=== PATIENT | female | born 1975 | race Two or more races ===

== ENCOUNTER 2016-04-24 06:47 | Emergency (ER) | payer MEDICAID ==
[~2016-04-24] VITALS: Ht 165.1 cm; Wt 79.4 kg
[2016-04-24 07:29] LABS: Basophils # (auto) 0 uL; Basophils % (auto) 0.6 % (0.0-2.0); DEFINITIVE VIEW TRANSMISSION; Eosinophils # (auto) 0.1 uL; Eosinophils % (auto) 2.2 % (0.0-7.0); Hemoglobin 12.9 g/dL (12.2-16.2); Lymphocytes # (auto) 1.2 uL; Lymphocytes % (auto) 26.3 % (10.0-50.0); Mean Corpuscular Hemoglobin 28.9 pg (28.0-32.0); Mean Corpuscular Hgb Conc. 33.1 g/dL (32.0-36.0); Mean Corpuscular Volume 87.2 fL (80.0-100.0); Mean Platelet Volume 9.2 fL (7.4-10.4); Monocytes # (auto) 0.4 uL; Monocytes % (auto) 7.4 % (0.0-12.0); Neutrophils % (auto) 63.5 % (37.0-80.0); Platelet Count (auto) 272 10^3/uL (140-450); White Blood Cell 4.7 10^3/uL (4.4-10.8)
[2016-04-24 07:30] LABS: Red Cell Distribution Width 20.8 % (11.6-16.0)
[2016-04-24 08:08] LABS: Anisocytosis Slight; Platelet Estimate Adequate
[2016-04-24 08:12] LABS: Albumin 4.1 g/dL (3.4-5.0); BUN/Creatinine Ratio 19.5; Calcium 8.4 mg/dL (8.5-10.1); Potassium 3.8 mmol/L (3.5-5.1)
[2016-04-24 08:19] LABS: Bilirubin, Total 0.2 mg/dL (0.2-1.0); Total Protein 8.1 g/dL (6.4-8.2)
[2016-04-24 08:50] VITALS: BP 110/78
== END 2016-04-24 09:29 | disposition home or self-care (01) ==
LOC: ER 06:49
DX: I10 Essential (primary) hypertension (principal)
CPT/HCPCS: 36415; 80053; 85025; 93005

== ENCOUNTER 2017-03-04 09:37 | Emergency (ER) | payer MEDICAID ==
[~2017-03-04] VITALS: Ht 165.1 cm; Wt 80.7 kg
[2017-03-04 09:43] VITALS: BP 114/93
== END 2017-03-04 11:24 | disposition home or self-care (01) ==
LOC: ER 09:37
DX: S30.0XXA Contusion of lower back and pelvis, initial encounter (principal); I10 Essential (primary) hypertension; W19.XXXA Unspecified fall, initial encounter; Y93.21 Activity, ice skating; Y92.89 Other specified places as the place of occurrence of the external cause; Y99.8 Other external cause status
CPT/HCPCS: 72220

== ENCOUNTER 2017-07-09 11:47 | Observation (INO) | payer BC, MEDICAID ==
[~2017-07-09] VITALS: Ht 165.1 cm; Wt 81.6 kg
[2017-07-09] MEDS ORDERED: SODIUM CHLORIDE 0.9% 1,000 ML IVB ONE (12:18)
[2017-07-09] MEDS ORDERED: ONDANSETRON HCL 4 MG/2 ML VIAL IV ONE (12:30)
[2017-07-09 12:37] LABS: Basophils # (auto) 0 uL; Basophils % (auto) 0.7 % (0.0-2.0); Eosinophils # (auto) 0.1 uL; Eosinophils % (auto) 2.6 % (0.0-7.0); Hemoglobin 14.1 g/dL (12.2-16.2); Lymphocytes % (auto) 20.1 % (10.0-50.0); Mean Corpuscular Hemoglobin 31.3 pg (28.0-32.0); Mean Corpuscular Hgb Conc. 32.8 g/dL (32.0-36.0); Mean Corpuscular Volume 95.3 fL (80.0-100.0); Monocytes # (auto) 0.3 uL; Monocytes % (auto) 6.2 % (0.0-12.0); Neutrophils # (auto) 3.5 uL; Neutrophils % (auto) 70.4 % (37.0-80.0); Nucleated Red Blood Cells % 0.1 %; Platelet Count (auto) 235 10^3/uL (140-450); Red Blood Cells 4.51 10^6/uL (4.0-5.20); Red Cell Distribution Width 13.7 % (11.8-14.3); White Blood Cell 4.9 10^3/uL (4.4-10.8)
[2017-07-09 12:51] LABS: Magnesium 2.3 mg/dL (1.6-2.6)
[2017-07-09 13:06] LABS: BUN/Creatinine Ratio 22.9; Bilirubin, Total 0.4 mg/dL (0.2-1.0); Calcium 9.1 mg/dL (8.5-10.1); Potassium 3.9 mmol/L (3.5-5.1); Total Protein 8.2 g/dL (6.4-8.2)
[2017-07-09] MEDS ORDERED: MORPHINE SULFATE 4 MG/ML SYR/VIAL IV ONE (13:30)
[2017-07-09] MEDS ORDERED: diphenhdrAMINE HCL 50 MG/1 ML VL ONE (13:51)
[2017-07-09 13:55] LABS: Urine Bacteria NONE SEEN /hpf (None Seen); Urine Blood Negative /uL (Negative); Urine Specific Gravity 1.016 (1.001-1.035); Urine WBC 7 /hpf (0 - 5)
[2017-07-09] MEDS ORDERED: diphenhdrAMINE HCL 50 MG/1 ML VL IV ONE (14:00)
[2017-07-09] MEDS ORDERED: cefTRIAXone 1GM/10ml IVPUSH 10 ML IV ONE (15:30)
[2017-07-09 17:02] VITALS: BP 101/73
== END 2017-07-09 18:13 | disposition home or self-care (01) | DRG 690 ==
LOC: ER 11:51 → OVERFLOW 18:13 → ER 18:13
PROVIDERS: ADMIT Family Medicine; ATTEND Family Medicine
DX: N39.0 Urinary tract infection, site not specified (principal); I10 Essential (primary) hypertension; Z90.49 Acquired absence of other specified parts of digestive tract; Z90.710 Acquired absence of both cervix and uterus; Z82.49 Family history of ischemic heart disease and other diseases of the circulatory system; Z88.5 Allergy status to narcotic agent
CPT/HCPCS: 36415; 71045; 74176; 80053; 80320; 81001; 82150; 83690; 83735; 85025; 96361; 96374; 96375; 99285; G0378; J1200; J2270; J2405

== ENCOUNTER 2018-09-03 12:40 | Emergency (ER) | payer BC, MEDICAID ==
[~2018-09-03] VITALS: Ht 165.1 cm; Wt 79.4 kg
[2018-09-03 14:29] VITALS: BP 127/92
[2018-09-03] MEDS ORDERED: KETOROLAC TROMETH 60MG/2ML VIAL IM ONE (16:15)
== END 2018-09-03 17:20 | disposition home or self-care (01) ==
LOC: ER 12:40
DX: S40.011A Contusion of right shoulder, initial encounter (principal); M54.2 Cervicalgia; I10 Essential (primary) hypertension; Z88.5 Allergy status to narcotic agent; V43.62XA Car passenger injured in collision with other type car in traffic accident, initial encounter; Y93.89 Activity, other specified; Y92.488 Other paved roadways as the place of occurrence of the external cause; Y99.8 Other external cause status
CPT/HCPCS: 73030; 96372; 99283; J1885

== ENCOUNTER → 2019-04-19 | Emergency (ER) | payer MEDICAID ==
[~2019-04-19] VITALS: Ht 165.1 cm; Wt 72.1 kg
[2019-04-19 13:57] LABS: Basophils # (auto) 0 uL; Basophils % (auto) 0.6 % (0.0-2.0); Eosinophils # (auto) 0.1 uL; Hematocrit 40.1 % (36.0-46.0); Hemoglobin 13.2 g/dL (12.2-16.2); Lymphocytes # (auto) 1.1 uL; Lymphocytes % (auto) 16.9 % (10.0-50.0); Mean Corpuscular Hemoglobin 29.8 pg (28.0-32.0); Mean Corpuscular Hgb Conc. 32.8 g/dL (32.0-36.0); Mean Corpuscular Volume 90.9 fL (80.0-100.0); Monocytes # (auto) 0.3 uL; Monocytes % (auto) 4.2 % (0.0-12.0); Neutrophils # (auto) 5.1 uL; Neutrophils % (auto) 77.3 % (37.0-80.0); Platelet Count (auto) 262 10^3/uL (140-450); Red Blood Cells 4.42 10^6/uL (4.0-5.20); Red Cell Distribution Width 13.2 % (11.8-14.3); White Blood Cell 6.6 10^3/uL (4.4-10.8)
[2019-04-19 14:19] LABS: Albumin 4.4 g/dL (3.4-5.0); Anion Gap 6 (5-15); Blood Urea Nitrogen 20 mg/dL (7-18); Calcium 9.2 mg/dL (8.5-10.1); Carbon Dioxide 28 mmol/L (21-32); Chloride 106 mmol/L (98-107); Glucose 111 mg/dL (74-106); Potassium 3.9 mmol/L (3.5-5.1); Sodium 140 mmol/L (136-145)
[2019-04-19 14:27] LABS: Alanine Aminotransferase 27 U/L (13-56); Alkaline Phosphatase 103 U/L (45-117); Aspartate Aminotransferase 10 U/L (15-37); Bilirubin, Total 0.5 mg/dL (0.2-1.0); GFR African American 109 mL/min; GFR Non-African American 90 mL/min; Total Protein 8.5 g/dL (6.4-8.2)
[2019-04-19 17:13] VITALS: BP 118/70
== END | disposition home or self-care (01) ==
LOC: ER 12:01
DX: R07.89 Other chest pain (principal); F41.9 Anxiety disorder, unspecified; I10 Essential (primary) hypertension; R42 Dizziness and giddiness; Z90.49 Acquired absence of other specified parts of digestive tract; Z90.710 Acquired absence of both cervix and uterus; Z88.6 Allergy status to analgesic agent
CPT/HCPCS: 36415; 80053; 84484; 85025; 93005

== ENCOUNTER 2020-07-06 04:15 | Emergency (ER) | payer BC, MEDICAID ==
[~2020-07-06] VITALS: Ht 165.1 cm; Wt 76.2 kg
[2020-07-06] MEDS ORDERED: HYDROcodone-ACET 5/325MG TAB PO ONE (04:30)
[2020-07-06 07:42] VITALS: BP 132/99
[2020-07-06] MEDS ORDERED: IBUPROFEN 600 MG TAB PO ONE (07:45)
== END 2020-07-06 07:41 | disposition home or self-care (01) ==
LOC: ER 04:15
DX: S00.11XA Contusion of right eyelid and periocular area, initial encounter (principal); Z90.49 Acquired absence of other specified parts of digestive tract; Z90.710 Acquired absence of both cervix and uterus; Z88.5 Allergy status to narcotic agent; Y04.2XXA Assault by strike against or bumped into by another person, initial encounter; Y93.89 Activity, other specified; Y92.89 Other specified places as the place of occurrence of the external cause; Y99.8 Other external cause status
CPT/HCPCS: 70486

== ENCOUNTER 2021-10-01 22:12 | Emergency (ER) | payer BC, MEDICAID ==
[~2021-10-01] VITALS: Ht 165.1 cm; Wt 77.0 kg
[2021-10-01 23:05] VITALS: BP 123/92
[2021-10-02 00:10] LABS: Basophils # (auto) 0 10 ^3/uL (0-0.2); Basophils % (auto) 0.7 % (0.0-2.0); Eosinophils # (auto) 0.2 10 ^3/uL (0-0.8); Eosinophils % (auto) 3.3 % (0.0-7.0); Hematocrit 41.8 % (36.0-46.0); Hemoglobin 13.9 g/dL (12.2-16.2); Lymphocytes # (auto) 1.3 10 ^3/uL (0.4-5.4); Lymphocytes % (auto) 22.9 % (10.0-50.0); Mean Corpuscular Hemoglobin 30.9 pg (28.0-32.0); Mean Corpuscular Hgb Conc. 33.3 g/dL (32.0-36.0); Mean Corpuscular Volume 92.9 fL (80.0-100.0); Monocytes # (auto) 0.3 10 ^3/uL (0-1.3); Neutrophils % (auto) 68.1 % (37.0-80.0); Nucleated Red Blood Cells % 0.3 %; Red Cell Distribution Width 13.5 % (11.8-14.3); White Blood Cell 5.8 10^3/uL (4.4-10.8)
[2021-10-02 00:26] LABS: Albumin 4.1 g/dL (3.4-5.0); BUN/Creatinine Ratio 14.5; Calcium 8.9 mg/dL (8.5-10.1)
[2021-10-02 00:29] LABS: Bilirubin, Total 0.2 mg/dL (0.2-1.0)
[2021-10-02] MEDS ORDERED: FAMO20TA10 PO (04:06)
[2021-10-02] MEDS ORDERED: CIPR-173 PO (04:06)
== END 2021-10-02 04:24 | disposition home or self-care (01) ==
LOC: ER 22:12
DX: K29.70 Gastritis, unspecified, without bleeding (principal); Z90.49 Acquired absence of other specified parts of digestive tract; Z90.89 Acquired absence of other organs; Z90.710 Acquired absence of both cervix and uterus; Z88.6 Allergy status to analgesic agent
CPT/HCPCS: 36415; 74176; 80053; 83690; 85025

== ENCOUNTER 2021-11-10 13:59 | Emergency (ER) | payer BC, MEDICAID ==
[~2021-11-10] VITALS: Ht 165.1 cm; Wt 77.3 kg
[~2021-11-10 13:59] MED LIST: CIPR-173 PO; FAMO20TA10 PO
[2021-11-10] MEDS ORDERED: KETOROLAC TROMETH 60MG/2ML VIAL IM ONE (17:00)
[2021-11-10] MEDS ORDERED: IBUP800T27 PO (17:13)
[2021-11-10] MEDS ORDERED: METH750T22 PO (17:22)
[2021-11-10 17:26] VITALS: BP 107/74
== END 2021-11-10 17:41 | disposition home or self-care (01) ==
LOC: ER 13:59
DX: S83.91XA Sprain of unspecified site of right knee, initial encounter (principal); Z90.49 Acquired absence of other specified parts of digestive tract; Z90.89 Acquired absence of other organs; Z90.710 Acquired absence of both cervix and uterus; Z88.6 Allergy status to analgesic agent; W19.XXXA Unspecified fall, initial encounter; Y93.89 Activity, other specified; Y92.89 Other specified places as the place of occurrence of the external cause; Y99.8 Other external cause status
CPT/HCPCS: 73562; 96372; 99283; J1885

== ENCOUNTER 2023-03-02 06:21 | Emergency (ER) | payer BC, MEDICAID ==
[~2023-03-02] VITALS: Ht 165.1 cm; Wt 170.0 kg
[~2023-03-02 06:21] MED LIST changes: +IBUP-1456 PO; +METH-1182 PO
[2023-03-02 07:17] VITALS: BP 114/68; PULSE 105; RESP 18; O2SAT 99
[2023-03-02] MEDS ORDERED: HYDROcodone-ACET 10/325MG TAB PO ONE (07:30)
[2023-03-02] MEDS ORDERED: KETOROLAC TROMETH 60MG/2ML VIAL IM ONE (07:30)
[2023-03-02] MEDS ORDERED: IBUP-1455 PO (08:28)
[2023-03-02] MEDS ORDERED: HYDR-4902 PO (08:28)
== END 2023-03-02 08:32 | disposition home or self-care (01) ==
LOC: ER 06:21
DX: M25.561 Pain in right knee (principal); M54.12 Radiculopathy, cervical region; Z90.49 Acquired absence of other specified parts of digestive tract; Z90.710 Acquired absence of both cervix and uterus; Z79.1 Long term (current) use of non-steroidal anti-inflammatories (NSAID); Z79.2 Long term (current) use of antibiotics; Z79.899 Other long term (current) drug therapy; Z88.5 Allergy status to narcotic agent
CPT/HCPCS: 72040; 73562; 96372; 99284; J1885

== ENCOUNTER 2023-03-28 16:07 | Emergency (ER) | payer MEDICAID ==
[~2023-03-28] VITALS: Ht 165.1 cm; Wt 77.5 kg
[~2023-03-28 16:07] MED LIST changes: +HYDR-4902 PO; +IBUP-1455 PO
[2023-03-28] MEDS ORDERED: HYDR-4902 PO (18:34)
[2023-03-28] MEDS ORDERED: KETOROLAC TROMETH 60MG/2ML VIAL IM ONE (18:45)
[2023-03-28] MEDS ORDERED: DexAMETHasone SOD PHOS 10MG/1ML VIAL INJ IM ONE (18:45)
[2023-03-28 20:36] VITALS: BP 154/87; TEMP 97.5
[2023-03-28 20:37] VITALS: PULSE 90; RESP 16; O2SAT 100
== END 2023-03-28 20:56 | disposition home or self-care (01) ==
LOC: ER 16:07
DX: G89.29 Other chronic pain (principal); M25.561 Pain in right knee; M25.461 Effusion, right knee; R59.0 Localized enlarged lymph nodes; I10 Essential (primary) hypertension; Z90.49 Acquired absence of other specified parts of digestive tract; Z90.710 Acquired absence of both cervix and uterus; Z79.1 Long term (current) use of non-steroidal anti-inflammatories (NSAID); Z79.2 Long term (current) use of antibiotics; Z79.899 Other long term (current) drug therapy; Z88.5 Allergy status to narcotic agent
CPT/HCPCS: 93971; 96372; 99285; J1100; J1885